=== PATIENT | female | born 1980 | race Caucasian/White ===

== ENCOUNTER 2016-07-03 20:58 | Emergency (ER) | payer OTHER ==
[~2016-07-03] VITALS: Ht 175.3 cm; Wt 69.0 kg
[~2016-07-03 20:58] MED LIST: ARMOUR THYROID90 M1 PO
[2016-07-03] MEDS ORDERED: PENICILLIN V P500 MG PO (21:28)
[2016-07-03] MEDS ORDERED: IBUPROFEN 600600 M1 PO (21:28)
[2016-07-03 22:26] VITALS: BP 118/79
== END 2016-07-03 22:27 | disposition home or self-care (01) ==
LOC: ER 20:58
DX: K04.7 Periapical abscess without sinus (principal); E03.9 Hypothyroidism, unspecified; Z90.711 Acquired absence of uterus with remaining cervical stump; F17.210 Nicotine dependence, cigarettes, uncomplicated